=== PATIENT | female | born 2000 | race Caucasian/White ===

== ENCOUNTER 2019-03-01 10:52 | Emergency (ER) | payer SELFPAY ==
[2019-03-01 11:00] VITALS: BP 137/75
--- NOTE | 2019-03-01 11:19 | ER Document Report ---
ED Medical Screen (RME) - General Chief Complaint: Flank Pain Stated Complaint: FLANK PAIN Time Seen by Provider: 03/01/19 11:18 Mode of Arrival: Ambulatory Information source: Patient Notes: 18-year-old female presented to ED for bilateral flank pain worse on the right 10 days. She states the pain is worse on her right side. She does have frequency urgency with urination. She states she believes she has a UTI. Last menstrual period was about 3 weeks ago. She states she does smoke 1/2 pack a day does not drink alcohol and smokes pot occasionally works at [email or web address]. She is alert oriented respirations regular and unlabored speaking in full sentences walks with a even steady gait. States she is never had any medical history that she knows of. I have greeted and performed a rapid initial assessment of this patient. A comprehensive ED assessment and evaluation of the patient, analysis of test results and completion of medical decision making process will be conducted by an additional ED providers. Dictation of this chart was performed using voice recognition software; therefore, there may be some unintended grammatical errors. TRAVEL OUTSIDE OF THE [place] IN LAST 30 DAYS: No - Related Data Allergies/Adverse Reactions: No Known Allergies Allergy (Verified 03/01/19 10:53) Physical Exam - Vital signs Vitals: Temp Pulse Resp BP Pulse Ox 98.1 F 74 16 137/75 H 99 03/01/19 10:59 03/01/19 10:59 03/01/19 10:59 03/01/19 10:59 03/01/19 10:59 Course - Vital Signs Vital signs: Temp Pulse Resp BP Pulse Ox 98.1 F 74 16 137/75 H 99 03/01/19 10:59 03/01/19 10:59 03/01/19 10:59 03/01/19 10:59 03/01/19 10:59 - Laboratory Laboratory results interpreted by me: 03/01/19 11:23 Urine Blood SMALL H Doctor's Discharge - Discharge Clinical Impression: Urinary tract infection, Low back pain Condition: Stable Disposition: HOME, SELF-CARE Additional Instructions: Urinary Tract Infection: Your evaluation suggests that you have a urinary tract infection. This is due to germs growing in the bladder. This is a common problem. This infection usually responds quickly to antibiotics. Your antibiotic should be taken exactly as prescribed. Drink plenty of fluids -- three to four quarts a day. Occasionally, a bladder anesthetic will be prescribed to help stop the feeling of urgency until the antibiotic has a chance to clear the infection. This may cause your urine to be dark orange. Certain urine infections require a culture. If the doctor obtained a culture, the results will be back in two days. You should call to see if a change in treatment is needed. A repeat urinalysis after you finish treatment is often recommended. The physician will let you know if further testing is required. Call the doctor if you develop fever, chills, flank pain, inability to urinate, or blood in the urine. Your history, physical exam, and laboratory analysis of urine suggest that you have a urinary tract infection and muscular low back pain. Take medications as prescribed for the bladder infection. Drink plenty of fluids throughout the day in the evening. Take Tylenol and ibuprofen or Aleve for your back pain. Follow-up with a local medical doctor if not improving. RETURN TO THE EMERGENCY ROOM IF ANY NEW OR WORSENING SYMPTOMS. Prescriptions: Cephalexin Monohydrate [Keflex 500 mg Capsule] 500 mg PO TID #15 capsule Forms: Return to Work
[2019-03-01 11:50] LABS: APPEARANCE,URINE SLIGHTLY-CLOUDY; BILIRUBIN,URINE NEGATIVE (NEGATIVE); COLOR,URINE YELLOW; GLUCOSE, URINE NEGATIVE (NEGATIVE); KETONES,URINE NEGATIVE (NEGATIVE); LEUKOCYTE ESTERASE,URINE NEGATIVE (NEGATIVE); NITRITE,URINE NEGATIVE (NEGATIVE); PROTEIN,URINE NEGATIVE (NEGATIVE); URINE SPECIFIC GRAVITY 1.013; UROBILINOGEN,URINE NEGATIVE mg/dL (<2.0)
[2019-03-01] MEDS ORDERED: CEPHALEXIN 500 MG CAPSULE PO ONE (13:00)
--- NOTE | 2019-03-01 13:17 | ER Document Report ---
Entered by AUSTIN NEWTON SCRIBE 03/01/19 1300 Acting as scribe for:NANY COHEN MD ED General - General Chief Complaint: Flank Pain Stated Complaint: FLANK PAIN Time Seen by Provider: 03/01/19 11:18 Mode of Arrival: Ambulatory Information source: Patient Notes: Patient is a 18 year old female presenting to the emergency department complaining of bilateral flank pain and urinary frequency and urgency onset 1.5 weeks ago. Patient states she noticed she had to use the restroom frequently and only a small amount of urine would be released. She states she also noticed her urine was malodorous. She states she believes she has a UTI although she has never had one before. Patient denies any fevers. Patient does express concern for . TRAVEL OUTSIDE OF THE [place] IN LAST 30 DAYS: No - Related Data Allergies/Adverse Reactions: No Known Allergies Allergy (Verified 03/01/19 10:53) Past Medical History - General Information source: Patient - Social History Smoking Status: Current Every Day Smoker Frequency of alcohol use: None Drug Abuse: Marijuana Family History: Reviewed & Not Pertinent Patient has suicidal ideation: No Patient has homicidal ideation: No Review of Systems - Review of Systems Constitutional: No symptoms reported EENT: No symptoms reported Cardiovascular: No symptoms reported Respiratory: No symptoms reported Gastrointestinal: No symptoms reported Genitourinary: See HPI, Frequency, Flank pain, Urgency Female Genitourinary: No symptoms reported Musculoskeletal: No symptoms reported Skin: No symptoms reported Hematologic/Lymphatic: No symptoms reported Neurological/Psychological: No symptoms reported -: Yes All other systems reviewed and negative Physical Exam - Vital signs Vitals: Temp Pulse Resp BP Pulse Ox 98.1 F 74 16 137/75 H 99 03/01/19 10:59 03/01/19 10:59 03/01/19 10:59 03/01/19 10:59 03/01/19 10:59 - Notes Notes: GENERAL: Alert, interacts well. No acute distress. HEAD: Normocephalic, atraumatic. EYES: Pupils equal, round, and reactive to light. Extraocular movements intact. ENT: Oral mucosa moist, tongue midline. NECK: Full range of motion. Supple. Trachea midline. LUNGS: Clear to auscultation bilaterally, no wheezes, rales, or rhonchi. No respiratory distress. HEART: Regular rate and rhythm. No murmurs, gallops, or rubs. ABDOMEN: Soft, slightly tender to palpate the RLQ, no suprapubic tenderness to palpation. Non-distended. Bowel sounds present in all 4 quadrants. No guarding, rigidity, or rebound. EXTREMITIES: Moves all 4 extremities spontaneously. NEUROLOGICAL: Alert and oriented x3. Normal speech. PSYCH: Normal affect, normal mood. SKIN: Warm, dry, normal turgor. No rashes or lesions noted. BACK: Tender to palpate the bilateral lumbar muscles, less tender to the bilateral flank. No CVA tenderness to percussion. Course - Vital Signs Vital signs: Temp Pulse Resp BP Pulse Ox 98.1 F 74 16 137/75 H 99 03/01/19 10:59 03/01/19 10:59 03/01/19 10:59 03/01/19 10:59 03/01/19 10:59 - Laboratory Laboratory results interpreted by me: 03/01/19 11:23 Urine Blood SMALL H Discharge - Discharge Clinical Impression: Urinary tract infection Qualifiers: Urinary tract infection type: site unspecified Hematuria presence: with hematuria Qualified Code(s): N39.0 - Urinary tract infection, site not specified; R31.9 - Hematuria, unspecified Low back pain Qualifiers: Chronicity: acute Back pain laterality: bilateral Sciatica presence: without sciatica Qualified Code(s): M54.5 - Low back pain Condition: Stable Disposition: HOME, SELF-CARE Additional Instructions: Urinary Tract Infection: Your evaluation suggests that you have a urinary tract infection. This is due to germs growing in the bladder. This is a common problem. This infection usually responds quickly to antibiotics. Your antibiotic should be taken exactly as prescribed. Drink plenty of fluids -- three to four quarts a day. Occasionally, a bladder anesthetic will be prescribed to help stop the feeling of urgency until the antibiotic has a chance to clear the infection. This may cause your urine to be dark orange. Certain urine infections require a culture. If the doctor obtained a culture, the results will be back in two days. You should call to see if a change in treatment is needed. A repeat urinalysis after you finish treatment is often recommended. The physician will let you know if further testing is required. Call the doctor if you develop fever, chills, flank pain, inability to uri nicola, or blood in the urine. Your history, physical exam, and laboratory analysis of urine suggest that you have a urinary tract infection and muscular low back pain. Take medications as prescribed for the bladder infection. Drink plenty of fluids throughout the day in the evening. Take Tylenol and ibuprofen or Aleve for your back pain. Follow-up with a local medical doctor if not improving. RETURN TO THE EMERGENCY ROOM IF ANY NEW OR WORSENING SYMPTOMS. Prescriptions: Cephalexin Monohydrate [Keflex 500 mg Capsule] 500 mg PO TID #15 capsule Forms: Return to Work Scribe Attestation: 03/01/19 12:56 I personally performed the services described in the documentation, reviewed and edited the documentation which was dictated to the scribe in my presence, and it accurately records my words and actions. I personally performed the services described in the documentation, reviewed and edited the documentation which was dictated to the scribe in my presence, and it accurately records my words and actions.
== END 2019-03-01 13:12 | disposition home or self-care (01) ==
LOC: ER 10:52
DX: N39.0 Urinary tract infection, site not specified (principal); R31.9 Hematuria, unspecified; M54.5 Low back pain; R10.9 Unspecified abdominal pain; R35.0 Frequency of micturition; R39.15 Urgency of urination; F17.200 Nicotine dependence, unspecified, uncomplicated
CPT/HCPCS: 81001; 81025; 87086; 87088; 87186; 99284

== ENCOUNTER → 2019-06-04 | Outpatient (CLI) | payer SELFPAY ==
--- NOTE | 2019-06-04 15:52 | RADIOLOGY REPORT (SQ) ---
EXAM DESCRIPTION: U/S [id number] TRNABD 1GES W/ODOP COMPLETED DATE/TIME: 06/04/2019 3:37 pm REASON FOR STUDY: Z34.01 ENCNTR FOR SUPRVSN OF NORMAL FIRST PREG, FIRST TRIMESTER Z34.01 ENCNTR FOR SUPRVSN OF NORMAL FIRST PREG, FIRST TRIMES COMPARISON: None. TECHNIQUE: Transabdominal static and realtime grayscale images acquired of the pelvis. Additional se lected spectral and color Doppler images recorded. All images stored on PACs. bHCG: Not applicable. CLINICAL DATES: 8 week 5 day. LIMITATIONS: None. FINDINGS: FETUS: Single Living intrauterine . ULTRASOUND EGA: 8 week 5 day. ULTRASOUND KATIE: 01/09/2020. EFW: Not applicable less than 20 weeks. CRL: 2.07 cm. FHR: 171 beats per minute. SURVEY: No visualized anomalies. AMNIOTIC FLUID: Adequate amount. PLACENTA: Not yet developed due to early gestation. SUBCHORIONIC BLEED: No. SIZE OF BLEED: Not applicable. UTERUS: No masses. No anomalies. CERVICAL LENGTH: 4.3 cm. Closed. RIGHT ADNEXA: Ovary not identified due to poor acoustical window. No adnexal free fluid. No adnexal masses. LEFT ADNEXA: Normal ovary with normal vascular flow. No adnexal free fluid. No adnexal masses. FREE FLUID: None. OTHER: No other significant finding. IMPRESSION: LIVING INTRAUTERINE . EGA 8 WEEK 5 DAY. Trimester of : First trimester - 0 to 13 weeks. TECHNICAL DOCUMENTATION: JOB ID: [id number] [employer]- All Rights Reserved Reading location - IP/workstation name: [email or web address]
== END ==
LOC: RAD 14:52
PROVIDERS: ATTEND Midwife
DX: Z34.01 Encounter for supervision of normal first pregnancy, first trimester (principal)
CPT/HCPCS: 76801

== ENCOUNTER → 2019-11-28 | Outpatient (CLI) | payer MEDICAID ==
[2019-11-28 17:16] LABS: ABSOLUTE LYMPHOCYTES (AUTO) 2.5 10^3/uL (0.5-4.7); ABSOLUTE MONOCYTES (AUTO) 0.6 10^3/uL (0.1-1.4); ABSOLUTE NEUT (AUTO) 8.8 10^3/uL (1.7-8.2); BASOPHILS % (AUTO) 0.3 % (0-2); EOSINOPHILS % (AUTO) 0.4 % (0-6); HEMATOCRIT 33.1 % (36.0-47.0); HEMOGLOBIN 11.3 g/dL (12.0-15.5); LYMPHOCYTES % (AUTO) 21.2 % (13-45); MEAN CORPUSCULAR HEMOGLOBIN 28.9 pg (27.0-33.4); MEAN CORPUSCULAR HGB CONC 34.3 g/dL (32.0-36.0); MEAN CORPUSCULAR VOLUME 84 fl (80-97); MONOCYTES % (AUTO) 5.1 % (3-13); PLATELET COUNT 266 10^3/uL (150-450); RED BLOOD COUNT 3.92 10^6/uL (3.72-5.28); RED CELL DISTRIBUTION WIDTH 12.6 % (11.5-14.0); TOTAL CELLS COUNTED % (AUTO) 100 %
[2019-11-28 17:35] LABS: ALBUMIN 3.5 g/dL (3.5-5.0); ALKALINE PHOSPHATASE 170 U/L (38-126); ANION GAP 8 (5-19); ASPARTATE AMINO TRANSFERASE 19 U/L (14-36); BILIRUBIN,TOTAL 0.3 mg/dL (0.2-1.3); BLOOD UREA NITROGEN 11 mg/dL (7-20); CALCIUM 9.7 mg/dL (8.4-10.2); CARBON DIOXIDE 21 mmol/L (22-30); CHLORIDE 105 mmol/L (98-107); POTASSIUM 4.2 mmol/L (3.6-5.0); TOTAL PROTEIN 6.4 g/dL (6.3-8.2); URIC ACID 5.8 mg/dL (2.5-6.2)
[2019-11-28 17:39] LABS: GLUCOSE 69 mg/dL (75-110)
== END ==
LOC: OD 16:26
PROVIDERS: ATTEND Obstetrics & Gynecology Gynecology
DX: O13.9 Gestational [pregnancy-induced] hypertension without significant proteinuria, unspecified trimester (principal)
CPT/HCPCS: 36415; 80053; 83615; 84550; 85025

== ENCOUNTER 2019-12-19 17:13 | Outpatient (CLI) | payer MEDICAID ==
[2019-12-19 18:19] LABS: APPEARANCE,URINE SLIGHTLY-CLOUDY; BILIRUBIN,URINE NEGATIVE (NEGATIVE); COLOR,URINE YELLOW; GLUCOSE, URINE NEGATIVE (NEGATIVE); KETONES,URINE NEGATIVE (NEGATIVE); LEUKOCYTE ESTERASE,URINE NEGATIVE (NEGATIVE); NITRITE,URINE NEGATIVE (NEGATIVE); PROTEIN,URINE 30 mg/dL (NEGATIVE); URINE SPECIFIC GRAVITY 1.014; UROBILINOGEN,URINE NEGATIVE mg/dL (<2.0)
[2019-12-19 18:32] LABS: ABSOLUTE BASOPHILS # (AUTO) 0.1 10^3/uL (0.0-0.2); ABSOLUTE MONOCYTES (AUTO) 0.5 10^3/uL (0.1-1.4); BASOPHILS % (AUTO) 0.6 % (0-2); EOSINOPHILS % (AUTO) 0.5 % (0-6); HEMATOCRIT 33.8 % (36.0-47.0); HEMOGLOBIN 11.6 g/dL (12.0-15.5); LYMPHOCYTES % (AUTO) 21.1 % (13-45); MEAN CORPUSCULAR HEMOGLOBIN 29.2 pg (27.0-33.4); MEAN CORPUSCULAR HGB CONC 34.3 g/dL (32.0-36.0); MEAN CORPUSCULAR VOLUME 85 fl (80-97); MONOCYTES % (AUTO) 5.4 % (3-13); PLATELET COUNT 208 10^3/uL (150-450); RED BLOOD COUNT 3.97 10^6/uL (3.72-5.28); RED CELL DISTRIBUTION WIDTH 13.2 % (11.5-14.0); SEGMENTED NEUTROPHILS % (AUTO) 72.4 % (42-78); TOTAL CELLS COUNTED % (AUTO) 100 %; WHITE BLOOD COUNT 9.7 10^3/uL (4.0-10.5)
[2019-12-19 18:34] LABS: URINE AMPHETAMINES SCREEN NEGATIVE; URINE BARBITURATES SCREEN NEGATIVE; URINE BENZODIAZEPINES SCREEN NEGATIVE; URINE COCAINE SCREEN NEGATIVE; URINE MARIJUANA (THC) SCREEN NEGATIVE; URINE METHADONE SCREEN NEGATIVE; URINE PHENCYCLIDINE SCREEN NEGATIVE
--- NOTE | 2019-12-19 18:36 | Non Stress Test Report ---
Non Stress Test Datetime Report Generated by CPN: 12/19/2019 18:35 DEMOGRAPHIC EGA NST: 37.2 INDICATION Indication for Study (NST) Other: increased BP's in the office MONITORING Monitor Explained: Monitor Explained; Test Explained Time on Monitor: 12/19/2019 18:00 Time off Monitor: 12/19/2019 18:20 NST Duration: 20 NST INTERVENTIONS NST Interventions: PO Hydration Physician Notified NST: Coy MD BABY A: [id number] BABY A Movement : Present Contraction Frequency : 0 FHR Baseline : 120 Accelerations : 15X15 Decelerations : None Variability : Moderate 6-25bpm NST Review: Meets Criteria for Reactive NST NST Review and Verified By : Edda Chu RN NST Results: Reactive NST REPORT Report Trigger: Send Report
[2019-12-19 18:38] LABS: UR PRO/CREAT RATIO RESULT 0.6 mg/mg (0.0-0.2); URINE CREATININE 87.2 mg/dL (16-327); URINE PROTEIN 55.7 mg/dL (<12)
[2019-12-19 18:50] LABS: ALBUMIN 3.3 g/dL (3.5-5.0); ALKALINE PHOSPHATASE 182 U/L (38-126); ANION GAP 6 (5-19); ASPARTATE AMINO TRANSFERASE 19 U/L (14-36); BILIRUBIN,TOTAL 0.1 mg/dL (0.2-1.3); BLOOD UREA NITROGEN 17 mg/dL (7-20); CALCIUM 9.7 mg/dL (8.4-10.2); CARBON DIOXIDE 22 mmol/L (22-30); CHLORIDE 107 mmol/L (98-107); GLUCOSE 101 mg/dL (75-110); POTASSIUM 4.4 mmol/L (3.6-5.0); TOTAL PROTEIN 6.2 g/dL (6.3-8.2); URIC ACID 6.7 mg/dL (2.5-6.2)
== END 2019-12-19 19:21 | disposition home or self-care (01) ==
LOC: LC 17:13
PROVIDERS: ATTEND Obstetrics & Gynecology
PROC: 4A1HXCZ Monitoring of Products of Conception, Cardiac Rate, External Approach (ICD-10-PCS; principal; 2019-12-19)
DX: O14.93 Unspecified pre-eclampsia, third trimester (principal); Z3A.37 37 weeks gestation of pregnancy
CPT/HCPCS: 36415; 59025; 80053; 80307; 81001; 82570; 83615; 84156; 84550; 85025

== ENCOUNTER 2019-12-21 14:37 | Outpatient (CLI) | payer MEDICAID | END 2019-12-21 15:19 | disposition home or self-care (01) | LOC: LC 14:37 | PROVIDERS: ATTEND Obstetrics & Gynecology Gynecology | DX: O12.13 Gestational proteinuria, third trimester (principal); Z3A.37 37 weeks gestation of pregnancy | CPT/HCPCS: 59025 ==

== ENCOUNTER 2019-12-30 18:20 | Inpatient (IN) | payer MEDICAID ==
[2019-12-30] MEDS ORDERED: RINGERS SOLUTION,LACTATED 1,000 ML IV ONE (18:40)
[2019-12-30] MEDS ORDERED: ACETAMINOPHEN 325 MG TABLET PO PRN (18:40)
[2019-12-30] MEDS ORDERED: DINOPROSTONE 10 MG VAGINAL INSERT.SR PV ONE (18:40)
[2019-12-30] MEDS ORDERED: RINGERS SOLUTION,LACTATED 1,000 ML IV PRN (18:40)
[2019-12-30] MEDS ORDERED: RINGERS SOLUTION,LACTATED 300 ML IV ONE (18:40)
[2019-12-30] MEDS ORDERED: ZOLPIDEM TARTRATE 5 MG TABLET PO PRN (18:40)
[2019-12-30] MEDS ORDERED: MAG HYDROX/AL HYDROX/SIMETH SUSP 30 ML UDCUP PO PRN (18:40)
[2019-12-30] MEDS ORDERED: PENICILLIN G POTASSIUM 5,000,000 UNIT in DEXTROSE 5%-WATER 100 ML IV ONE (19:00)
[2019-12-30 19:16] LABS: ABSOLUTE BASOPHILS # (AUTO) 0.1 10^3/uL (0.0-0.2); ABSOLUTE EOSINOPHILS # (AUTO) 0.1 10^3/uL (0.0-0.6); ABSOLUTE LYMPHOCYTES (AUTO) 2.4 10^3/uL (0.5-4.7); ABSOLUTE MONOCYTES (AUTO) 0.5 10^3/uL (0.1-1.4); ABSOLUTE NEUT (AUTO) 7.1 10^3/uL (1.7-8.2); BASOPHILS % (AUTO) 0.7 % (0-2); EOSINOPHILS % (AUTO) 0.6 % (0-6); HEMATOCRIT 34.7 % (36.0-47.0); HEMOGLOBIN 11.9 g/dL (12.0-15.5); LYMPHOCYTES % (AUTO) 23.4 % (13-45); MEAN CORPUSCULAR HEMOGLOBIN 28.7 pg (27.0-33.4); MEAN CORPUSCULAR HGB CONC 34.2 g/dL (32.0-36.0); MEAN CORPUSCULAR VOLUME 84 fl (80-97); MONOCYTES % (AUTO) 5.4 % (3-13); PLATELET COUNT 237 10^3/uL (150-450); RED BLOOD COUNT 4.13 10^6/uL (3.72-5.28); RED CELL DISTRIBUTION WIDTH 13.2 % (11.5-14.0); SEGMENTED NEUTROPHILS % (AUTO) 69.9 % (42-78); TOTAL CELLS COUNTED % (AUTO) 100 %; WHITE BLOOD COUNT 10.2 10^3/uL (4.0-10.5)
[2019-12-30 19:19] LABS: APPEARANCE,URINE CLEAR; BILIRUBIN,URINE NEGATIVE (NEGATIVE); COLOR,URINE YELLOW; GLUCOSE, URINE NEGATIVE (NEGATIVE); KETONES,URINE NEGATIVE (NEGATIVE); LEUKOCYTE ESTERASE,URINE NEGATIVE (NEGATIVE); NITRITE,URINE NEGATIVE (NEGATIVE); PROTEIN,URINE 100 mg/dL (NEGATIVE); URINE SPECIFIC GRAVITY 1.018; UROBILINOGEN,URINE NEGATIVE mg/dL (<2.0)
[2019-12-30 19:31] LABS: ALBUMIN 3.3 g/dL (3.5-5.0); ALKALINE PHOSPHATASE 188 U/L (38-126); ANION GAP 8 (5-19); ASPARTATE AMINO TRANSFERASE 19 U/L (14-36); BILIRUBIN,TOTAL 0.2 mg/dL (0.2-1.3); BLOOD UREA NITROGEN 21 mg/dL (7-20); CALCIUM 9.6 mg/dL (8.4-10.2); CARBON DIOXIDE 19 mmol/L (22-30); CHLORIDE 105 mmol/L (98-107); GLUCOSE 96 mg/dL (75-110); POTASSIUM 4.6 mmol/L (3.6-5.0); TOTAL PROTEIN 6.1 g/dL (6.3-8.2); URIC ACID 7.5 mg/dL (2.5-6.2)
[2019-12-30 19:36] LABS: URINE AMPHETAMINES SCREEN NEGATIVE; URINE BARBITURATES SCREEN NEGATIVE; URINE BENZODIAZEPINES SCREEN NEGATIVE; URINE COCAINE SCREEN NEGATIVE; URINE MARIJUANA (THC) SCREEN NEGATIVE; URINE METHADONE SCREEN NEGATIVE; URINE PHENCYCLIDINE SCREEN NEGATIVE
[2019-12-30 19:42] LABS: UR PRO/CREAT RATIO RESULT 1.6 mg/mg (0.0-0.2); URINE CREATININE 118.8 mg/dL (16-327); URINE PROTEIN 187.6 mg/dL (<12)
[2019-12-30] MEDS ORDERED: DINOPROSTONE 10 MG VAGINAL INSERT.SR ONE (19:43)
[2019-12-30] MEDS: RINGERS SOLUTION,LACTATED 1,000 ML IV PRN (19:57)
[2019-12-30] MEDS ORDERED: ZOLPIDEM TARTRATE 5 MG TABLET ONE (22:10)
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
[2019-12-31] MEDS ORDERED: ZOLPIDEM TARTRATE 5 MG TABLET PO ONE ×2 (00:01)
[2019-12-31] MEDS ORDERED: ZOLPIDEM TARTRATE 5 MG TABLET ONE (00:09)
[2019-12-31] MEDS ORDERED: OXYTOCIN/NORMAL SALINE 20 UNIT/1,000 ML RTUINJ ONE (08:45)
[2019-12-31] MEDS ORDERED: MORPHINE SULFATE 10 MG/ML INJ ONE (09:11)
[2019-12-31] MEDS ORDERED: PROMETHAZINE HCL INJ 25 MG/1 ML VIAL ONE (09:11)
[2019-12-31] MEDS ORDERED: MISOPROSTOL 0.2 MG TABLET ONE (09:13)
[2019-12-31] MEDS ORDERED: LIDOCAINE 1% INJ-PF (10 MG/ML) 30 ML SDV ONE (09:13)
[2019-12-31] MEDS ORDERED: OXYTOCIN 10 UNIT/ML VIAL ONE (09:13)
[2019-12-31] MEDS ORDERED: PROMETHAZINE HCL INJ 25 MG/1 ML VIAL IV ONE (09:22)
[2019-12-31] MEDS ORDERED: MORPHINE SULFATE 10 MG/ML INJ IV ONE (09:22)
[2019-12-31] MEDS ORDERED: OXYTOCIN/NORMAL SALINE 20 UNIT/1,000 ML RTUINJ IV PRN ×2 (09:23→15:06)
[2019-12-31 09:58] LABS: HEMATOCRIT 33.8 % (36.0-47.0); HEMOGLOBIN 11.9 g/dL (12.0-15.5); MEAN CORPUSCULAR HEMOGLOBIN 29.1 pg (27.0-33.4); MEAN CORPUSCULAR HGB CONC 35.2 g/dL (32.0-36.0); MEAN CORPUSCULAR VOLUME 83 fl (80-97); PLATELET COUNT 219 10^3/uL (150-450); RED BLOOD COUNT 4.08 10^6/uL (3.72-5.28); RED CELL DISTRIBUTION WIDTH 13.4 % (11.5-14.0)
[2019-12-31] MEDS ORDERED: PENICILLIN G-K 5 MILLION UNIT VIAL ONE ×2 (10:03→13:08)
[2019-12-31 10:15] LABS: ALBUMIN 3.4 g/dL (3.5-5.0); ALKALINE PHOSPHATASE 221 U/L (38-126); ANION GAP 8 (5-19); ASPARTATE AMINO TRANSFERASE 24 U/L (14-36); BILIRUBIN,TOTAL 0.2 mg/dL (0.2-1.3); BLOOD UREA NITROGEN 20 mg/dL (7-20); CALCIUM 8.8 mg/dL (8.4-10.2); CARBON DIOXIDE 19 mmol/L (22-30); CHLORIDE 104 mmol/L (98-107); GLUCOSE 100 mg/dL (75-110); POTASSIUM 4.4 mmol/L (3.6-5.0); TOTAL PROTEIN 6.4 g/dL (6.3-8.2); URIC ACID 7.1 mg/dL (2.5-6.2)
[2019-12-31] MEDS ORDERED: EPHEDRINE SULFATE INJ 50 MG/1 ML AMPULE ONE (10:44)
[2019-12-31] MEDS ORDERED: FENTANYL/BUPIVACAINE/NS/PF 300 MCG/150 ML RTUINJ EPI ONE (10:44)
[2019-12-31] MEDS ORDERED: BUPIVACAINE HCL 0.25 % INJ/PF (2.5 MG/1 ML) 30 ML VIAL ONE (10:45)
[2019-12-31] MEDS: RINGERS SOLUTION,LACTATED 1,000 ML IV PRN (11:18)
[2019-12-31] MEDS: PENICILLIN G POTASSIUM 2,500,000 UNIT in DEXTROSE 5%-WATER 50 ML IV SCH ×2 (14:17→17:08)
[2019-12-31] MEDS ORDERED: PROMETHAZINE HCL INJ 25 MG/1 ML VIAL IV PRN (15:06)
[2019-12-31] MEDS ORDERED: NA PHOS,M-B/NA PHOS,DI-BA (ADULT) 133 ML ENEMA PR PRN (15:06)
[2019-12-31] MEDS ORDERED: ACETAMINOPHEN WITH CODEINE #3 TABLET PO PRN ×2 (15:06)
[2019-12-31] MEDS ORDERED: ACETAMINOPHEN 325 MG TABLET PO PRN (15:06)
[2019-12-31] MEDS ORDERED: PROMETHAZINE HCL 25 MG TABLET PO PRN (15:06)
[2019-12-31] MEDS ORDERED: MEASLES,MUMPS&RUBELLA VACC/PF 0.5 ML VIAL SUBCUT PRN (15:06)
[2019-12-31] MEDS ORDERED: DIPH/PERTUSS(ACELL)/TETANUS VAC/PF 0.5 ML SYR (>=10YO) IM PRN (15:06)
[2019-12-31] MEDS ORDERED: DIBUCAINE 1% OINTMENT 28 GM TP PRN (15:06)
[2019-12-31] MEDS ORDERED: MAGNESIUM HYDROXIDE SUSP 30 ML UDCUP PO PRN (15:06)
[2019-12-31] MEDS ORDERED: BENZOCAINE/MENTHOL AEROSOL SPRAY 56 ML TOP PRN (15:06)
[2019-12-31] MEDS ORDERED: DIPHENHYDRAMINE HCL 25 MG CAPSULE PO PRN (15:06)
[2019-12-31] MEDS ORDERED: PROMETHAZINE HCL 25 MG SUPP.RECT PR PRN (15:06)
[2019-12-31] MEDS ORDERED: ZOLPIDEM TARTRATE 5 MG TABLET PO PRN (15:06)
[2019-12-31] MEDS ORDERED: PSEUDOEPHEDRINE HCL 30 MG TABLET PO PRN (15:06)
[2019-12-31] MEDS ORDERED: ACETAMINOPHEN 650 MG SUPP.RECT PR PRN (15:06)
[2019-12-31] MEDS ORDERED: GLYCERIN/WITCH HAZEL LEAF 1 EACH MED..WIPE TP PRN (15:06)
[2019-12-31] MEDS ORDERED: BENZOCAINE/MENTHOL AEROSOL SPRAY 56 ML ONE (16:37)
--- NOTE | 2019-12-31 17:14 | Delivery Summary ---
Del Sum A-C Datetime Report Generated by CPN: 12/31/2019 17:14 DELIVERY PERSONNEL DELIVERY PERSONNEL: [id number] Delivery Doctor:: Iona Cheney MD Labor and Delivery Nurse:: Charo Vieyra RNactuarial internship Nurse:: Mi Norwood RN Pillowcase Folder/INDUSTRIAL CONTROLLER: Denisse Acevedo ENTERPRISE ANALYST Additional Personnel: : Carolyn Peck RNC MATERNAL INFORMATION Delivery Anesthesia: Epidural Medications After Delivery: Pitocin Bolus-Please Comment Meds After Delivery Comment: 20 Units/1000 ml NSS Estimated Blood Loss (ml): 150 Delivery QBL: 150 Maternal Complications: None LABOR SUMMARY EDC: 01/07/2020 00:00 No. Babies in Womb: 1 Attempted: No Labor Anesthesia: Epidural LABOR INFORMATION Reason for Induction: Pre-Eclampsia Onset of Labor: 12/31/2019 09:00 Complete Dilatation: 12/31/2019 13:23 Cervical Ripening Agents: Cervidil Oxytocin: Induction Group B Beta Strep: positive Antibiotics # of Doses: 2 Antibiotics Time of Last Dose: 1412 Name of Antibiotic Given: Penicillin Steroids Given: None Reason Steroids Not Administered: Not Applicable MEMBRANES Membranes Rupture Method: Spontaneous Rupture of Membranes: 12/31/2019 09:03 Length of Rupture (hr): 5.88 Amniotic Fluid Color: Clear Amniotic Fluid Amount: Moderate Amniotic Fluid Odor: None STAGES OF LABOR Stage 1 hr: 4 Stage 1 min: 23 Stage 2 hr: 1 Stage 2 min: 33 Stage 3 hr: 0 Stage 3 min: 2 Total Time in Labor hr: 5 Total Time in Labor min: 58 VAGINAL DELIVERY Episiotomy: None Laceration #1: None Laceration Extension #1: N/A Laceration Repair: Not Applicable Sponge Count Correct: N/A Sharps Count Correct: N/A CSECTION DELIVERY Primary Indication: N/A Secondary Indication: N/A CSection Incidence: N/A Labor: N/A Elective: N/A CSection Incision: N/A BABY A INFORMATION Delivery Date/Time: 12/31/2019 14:56 Method of Delivery: Vaginal Nurse Controlled Delivery: No Born in Route : No : N/A Forceps: N/A Vacuum Extraction: N/A Shoulder Dystocia : No PRESENTATION/POSITION BABY A Presentation: Cephalic Cephalic Presentation: Vertex Vertex Position: Right Occipital Anterior Breech Presentation: N/A PLACENTA INFORMATION BABY A Placenta Delivery Time : 12/31/2019 14:58 Placenta Method of Delivery: Spontaneous Placenta Status: Delivered SCORES BABY A Heart Rate 1 min: >100 bpm Resp Effort 1 min: Good Cry Reflex Irritability 1 min: Cough or Sneeze or Pulls Away Muscle Tone 1 min: Active Motion Color 1 min: Blue/Pale Resuscitation Effort 1 min: Tactile Stimulation SCORE 1 MIN: 8 Heart Rate 5 min: >100 bpm Resp Effort 5 min: Good Cry Reflex Irritability 5 min: Cough or Sneeze or Pulls Away Muscle Tone 5 min: Active Motion Color 5 min: Body Ensley, Extremities Blue Resuscitation Effort 5 min: N/A SCORE 5 MIN: 9 Resuscitation Effort 10 min: N/A INFANT INFORMATION BABY A Gestational Age at Delivery: 39.0 Gestational Status: Full Term- 39- 40.6 Weeks Infant Outcome : Liveborn Condition : Stable Infant Sex: Female IDENTIFICATION BABY A Infant Verification Date/Time: 12/31/2019 15:17 ID Band Number: [id number] Mother's Name Verified: Yes Infant RN Verifying : Luisa Vieyra, RN Additional Verifying Personnel: TClint Schmidtg, RN WEIGHT/LENGTH BABY A Birthweight (gm): 2751 Weight (lb): 6 Infant Weight (oz): 1 Length (in): 18.50 Infant Length (cm): 46.99 CORD INFORMATION BABY A No. Cord Vessels: 3 Nuchal Cord : N/A Cord Blood Taken: Yes-For Storage (Mom's Blood type +) Suction: None ASSESSMENT BABY A Infant Complications: None Physical Findings at Delivery: Caput Succedaneum; Molding of the Head Respirations: Appears Normal Skin to Skin: Yes Skin to Skin Time (min): 55 Arts Manager/ALS Called : No Infant Care By: Myrna Vieyra RN Transferred To: Remains with Mother BABY B INFORMATION : N/A SIGNATURES Signature: with User ID: [email or web address]
[2019-12-31] MEDS: DOCUSATE SODIUM 100 MG CAPSULE PO SCH (17:40)
[2019-12-31] MEDS: FERROUS SULFATE 325 MG TABLET PO SCH (17:40)
[2019-12-31] MEDS: IBUPROFEN 800 MG TABLET PO SCH (21:19)
[2019-12-31] MEDS: FAMOTIDINE 20 MG TABLET PO SCH (21:21)
[2020-01-01] MEDS: IBUPROFEN 800 MG TABLET PO SCH ×3 (05:13→22:08)
[2020-01-01 06:23] LABS: HEMATOCRIT 26.6 % (36.0-47.0); MEAN CORPUSCULAR HEMOGLOBIN 29.7 pg (27.0-33.4); MEAN CORPUSCULAR HGB CONC 35.2 g/dL (32.0-36.0); MEAN CORPUSCULAR VOLUME 84 fl (80-97); PLATELET COUNT 182 10^3/uL (150-450); RED BLOOD COUNT 3.15 10^6/uL (3.72-5.28); RED CELL DISTRIBUTION WIDTH 13.3 % (11.5-14.0); WHITE BLOOD COUNT 10.7 10^3/uL (4.0-10.5)
[2020-01-01 06:24] LABS: HEMOGLOBIN 9.3 g/dL (12.0-15.5)
--- NOTE | 2020-01-01 10:11 | PDOC PROGRESS REPORT ---
Subjective-OB Progress Note for:: 01/01/20 Subjective: reports bleeding slowing, pain controlled with current meds. denies needs Physical Exam (OB) Vital Signs: Temp Pulse Resp BP Pulse Ox 97.6 F 66 16 122/83 98 01/01/20 07:47 01/01/20 07:47 01/01/20 07:47 01/01/20 07:47 01/01/20 07:47 Intake & Output 12/31/19 01/01/20 01/02/20 06:59 06:59 06:59 Intake Total 1000 1513 Output Total 600 Balance 1000 913 Weight 71.1 kg - Lochia Lochia Amount: Scant < 10 ml Lochia Color: Rubra/Red - Abdomen Description: Soft Hernia Present: No Fundal Description: Firm, Midline Fundal Height: u/u - u/2 - Genitourinary Female External exam: Other - labial edema-painful. able to urinate without difficulty - Extremities Lower extremities: Tyler's sign - neg Calf: Normal, Nontender Objective-Diagnostic Laboratory: 01/01/20 06:02 12/31/19 09:42 12/31/19 01/01/20 09:42 06:02 WBC 10.7 H RBC 3.15 L Hgb 9.3 L D Hct 26.6 L MCV 84 MCH 29.7 MCHC 35.2 RDW 13.3 Plt Count 182 Sodium 131.2 L Potassium 4.4 Chloride 104 Carbon Dioxide 19 L Anion Gap 8 BUN 20 Creatinine 0.91 Est GFR ( Amer) > 60 Glucose 100 Uric Acid 7.1 H Calcium 8.8 Total Bilirubin 0.2 AST 24 Alkaline Phosphatase 221 H Total Protein 6.4 Albumin 3.4 L Assessment and Plan(PN) - Time Spent with Patient Time with patient: Less than 15 minutes - Disposition Anticipated Discharge: Home Within: within 24 hours
[2020-01-01] MEDS: DOCUSATE SODIUM 100 MG CAPSULE PO SCH ×2 (10:37→17:34)
[2020-01-01] MEDS: SENNOSIDES/DOCUSATE 8.6-50 MG 1 EACH TABLET PO SCH (10:37)
[2020-01-01] MEDS: FERROUS SULFATE 325 MG TABLET PO SCH ×2 (10:37→17:34)
[2020-01-01] MEDS: PRENATAL VITAMIN W DHA CAPSULE PO SCH (10:37)
[2020-01-01] MEDS: FAMOTIDINE 20 MG TABLET PO SCH ×2 (10:40→22:08)
[2020-01-02] MEDS: IBUPROFEN 800 MG TABLET PO SCH (06:04)
[2020-01-02] MEDS: FAMOTIDINE 20 MG TABLET PO SCH (10:31)
[2020-01-02] MEDS: FERROUS SULFATE 325 MG TABLET PO SCH (10:31)
[2020-01-02] MEDS: DOCUSATE SODIUM 100 MG CAPSULE PO SCH (10:31)
[2020-01-02] MEDS: PRENATAL VITAMIN W DHA CAPSULE PO SCH (10:31)
[2020-01-02] MEDS: SENNOSIDES/DOCUSATE 8.6-50 MG 1 EACH TABLET PO SCH (10:31)
[2020-01-02 12:04] VITALS: BP 141/92
--- NOTE | 2020-01-02 12:24 | PDOC DISCHARGE SUMMARY ---
Impression - Admit/DC Date/PCP Admission Date/Primary Care Provider: 12/30/19 18:20 KIMBERLEY ENCARNACION CNM Discharge Date: 01/02/20 - Discharge Diagnosis (1) Vaginal delivery Is this a current diagnosis for this admission?: Yes (2) Acute blood loss anemia Is this a current diagnosis for this admission?: Yes (3) Current every day smoker Is this a current diagnosis for this admission?: Yes (4) Encounter for induction of labor Is this a current diagnosis for this admission?: Yes (5) Gestational hypertension Is this a current diagnosis for this admission?: Yes - Assessment Summary: stable for discharge, verbalized understanding of pp warning s/s. Has bp machine at home, will continue to check and call the office if bp elevated for appt in 1 week otherwise regular pp appt - Additional Information Resuscitation Status: Full Code Discharge Diet: As Tolerated, Regular Discharge Activity: Activity As Tolerated, Balance Activity w/Rest, No Lifting Over 10 Pounds, Pelvic Rest, No tub bath, Walk Frequently Referrals: KIMBERLEY ENCARNACION CNM [Primary Care Provider] - Prescriptions: Ibuprofen [Motrin 800 mg Tablet] 800 mg PO Q8HP PRN #20 tablet PRN Reason: Abdominal Cramping Docusate Sodium [Colace 100 mg Capsule] 100 mg PO BID #60 capsule Ferrous Sulfate [Feosol 325 mg Tablet] 325 mg PO BID #60 tablet Home Medications: Prenat 115/Iron Fum/Folic/Dss [ 19 Tablet] 1 each PO DAILY 12/19/19 Docusate Sodium [Colace 100 mg Capsule] 100 mg PO BID #60 capsule 01/02/20 Ferrous Sulfate [Feosol 325 mg Tablet] 325 mg PO BID #60 tablet 01/02/20 Ibuprofen [Motrin 800 mg Tablet] 800 mg PO Q8HP PRN #20 tablet 01/02/20 Results Laboratory Results: WBC 10.7 10^3/uL (4.0-10.5) H 01/01/20 06:02 RBC 3.15 10^6/uL (3.72-5.28) L 01/01/20 06:02 Hgb 9.3 g/dL (12.0-15.5) L D 01/01/20 06:02 Hct 26.6 % (36.0-47.0) L 01/01/20 06:02 MCV 84 fl (80-97) 01/01/20 06:02 MCH 29.7 pg (27.0-33.4) 01/01/20 06:02 MCHC 35.2 g/dL (32.0-36.0) 01/01/20 06:02 RDW 13.3 % (11.5-14.0) 01/01/20 06:02 Plt Count 182 10^3/uL (150-450) 01/01/20 06:02 Lymph % (Auto) 23.4 % (13-45) 12/30/19 18:59 [place] % (Auto) 5.4 % (3-13) 12/30/19 18:59 Eos % (Auto) 0.6 % (0-6) 12/30/19 18:59 Baso % (Auto) 0.7 % (0-2) 12/30/19 18:59 Absolute Neuts (auto) 7.1 10^3/uL (1.7-8.2) 12/30/19 18:59 Absolute Lymphs (auto) 2.4 10^3/uL (0.5-4.7) 12/30/19 18:59 Absolute Monos (auto) 0.5 10^3/uL (0.1-1.4) 12/30/19 18:59 Absolute Eos (auto) 0.1 10^3/uL (0.0-0.6) 12/30/19 18:59 Absolute Basos (auto) 0.1 10^3/uL (0.0-0.2) 12/30/19 18:59 Seg Neutrophils % 69.9 % (42-78) 12/30/19 18:59 Sodium 131.2 mmol/L (137-145) L 12/31/19 09:42 Potassium 4.4 mmol/L (3.6-5.0) 12/31/19 09:42 Chloride 104 mmol/L (98-107) 12/31/19 09:42 Carbon Dioxide 19 mmol/L (22-30) L 12/31/19 09:42 Anion Gap 8 (5-19) 12/31/19 09:42 BUN 20 mg/dL (7-20) 12/31/19 09:42 Creatinine 0.91 mg/dL (0.52-1.25) 12/31/19 09:42 Est GFR ( Amer) > 60 (>60) 12/31/19 09:42 Est GFR (MDRD) Non-Af > 60 (>60) 12/31/19 09:42 Glucose 100 mg/dL (75-110) 12/31/19 09:42 Uric Acid 7.1 mg/dL (2.5-6.2) H 12/31/19 09:42 Calcium 8.8 mg/dL (8.4-10.2) 12/31/19 09:42 Total Bilirubin 0.2 mg/dL (0.2-1.3) 12/31/19 09:42 Direct Bilirubin 0.0 mg/dL (0.0-0.4) 12/31/19 09:42 Neonat Total Bilirubin Not Reportable 12/31/19 09:42 Neonat Direct Bilirubin Not Reportable 12/31/19 09:42 Neonat Indirect Bili Not Reportable 12/31/19 09:42 AST 24 U/L (14-36) 12/31/19 09:42 ALT 14 U/L (<35) 12/31/19 09:42 Alkaline Phosphatase 221 U/L (38-126) H 12/31/19 09:42 Lactate Dehydrogenase 247 U/L (120-246) H 12/31/19 09:42 Total Protein 6.4 g/dL (6.3-8.2) 12/31/19 09:42 Albumin 3.4 g/dL (3.5-5.0) L 12/31/19 09:42 Urine Color YELLOW 12/30/19 18:59 Urine Appearance CLEAR 12/30/19 18:59 Urine pH 6.0 (5.0-9.0) 12/30/19 18:59 Ur Specific [place] 1.018 12/30/19 18:59 Urine Protein 100 mg/dL (NEGATIVE) H 12/30/19 18:59 Urine Glucose (UA) NEGATIVE mg/dL (NEGATIVE) 12/30/19 18:59 Urine Ketones NEGATIVE mg/dL (NEGATIVE) 12/30/19 18:59 Urine Blood NEGATIVE (NEGATIVE) 12/30/19 18:59 Urine Nitrite NEGATIVE (NEGATIVE) 12/30/19 18:59 Urine Bilirubin NEGATIVE (NEGATIVE) 12/30/19 18:59 Urine Urobilinogen NEGATIVE mg/dL (<2.0) 12/30/19 18:59 Ur Leukocyte Esterase NEGATIVE (NEGATIVE) 12/30/19 18:59 Urine WBC (Auto) 1 /HPF 12/30/19 18:59 Urine RBC (Auto) 0 /HPF 12/30/19 18:59 U Hyaline Cast (Auto) 1 /LPF 12/30/19 18:59 Squamous Epi Cells Auto <1 /HPF 12/30/19 18:59 Urine Mucus (Auto) RARE /LPF 12/30/19 18:59 Urine Creatinine 118.8 mg/dL (16-327) 12/30/19 18:59 Protein/Creatinin Ratio 1.6 mg/mg (0.0-0.2) H 12/30/19 18:59 Urine Total Protein 187.6 mg/dL (<12) H 12/30/19 18:59 Urine Ascorbic Acid NEGATIVE (NEGATIVE) 12/30/19 18:59 Urine Opiates Screen NEGATIVE 12/30/19 18:59 Urine Methadone Screen NEGATIVE 12/30/19 18:59 Ur Barbiturates Screen NEGATIVE 12/30/19 18:59 Ur Phencyclidine Scrn NEGATIVE 12/30/19 18:59 Ur Amphetamines Screen NEGATIVE 12/30/19 18:59 U Benzodiazepines Scrn NEGATIVE 12/30/19 18:59 Urine Cocaine Screen NEGATIVE 12/30/19 18:59 U Marijuana (THC) Screen NEGATIVE 12/30/19 18:59 RPR NONREACTIVE (NONREACTIVE) 12/30/19 18:59 Blood Type A POSITIVE 12/30/19 18:59 Antibody Screen NEGATIVE 12/30/19 18:59
== END 2020-01-02 13:05 | disposition home or self-care (01) | DRG 806 ==
LOC: LR 18:20 → 2S 12-31 17:13
PROVIDERS: ADMIT Obstetrics & Gynecology; ATTEND Obstetrics & Gynecology
PROC: 10E0XZZ Delivery of Products of Conception, External Approach (ICD-10-PCS; principal; 2019-12-31)
PROC: 3E033VJ Introduction of Other Hormone into Peripheral Vein, Percutaneous Approach (ICD-10-PCS; 2019-12-31)
DX: O13.4 Gestational [pregnancy-induced] hypertension without significant proteinuria, complicating childbirth (principal); D62 Acute posthemorrhagic anemia; Z37.0 Single live birth; O99.343 Other mental disorders complicating pregnancy, third trimester; O99.824 Streptococcus B carrier state complicating childbirth; Z3A.39 39 weeks gestation of pregnancy; O99.333 Smoking (tobacco) complicating pregnancy, third trimester; F41.8 Other specified anxiety disorders; O99.02 Anemia complicating childbirth
CPT/HCPCS: 36415; 80053; 80307; 81001; 82570; 83615; 84156; 84550; 85025; 85027; 86592; 86850; 86900; 86901; J2270; J2540; J2550; J2590; J3010; J3490; J7060

== ENCOUNTER 2020-02-20 15:43 | Emergency (ER) | payer MEDICAID ==
--- NOTE | 2020-02-20 16:12 | ER Document Report ---
ED Medical Screen (RME) - General Chief Complaint: Anxiety Stated Complaint: ANXIOUS Time Seen by Provider: 02/20/20 16:02 Primary Care Provider: KIMBERLEY ENCARNACION CNM [Primary Care Provider] - Follow up as needed Mode of Arrival: Ambulatory Information source: Patient Notes: HPI; 19-year-old female past medical history significant for anxiety presents to the emergency room stating "I think I am having an anxiety attack" patient states her almost 2-month-old daughter is admitted upstairs for the past 2 to 3 days and she is feeling anxious having stay in the room and not being able to leave. Previous history of anxiety states she used to take Zoloft has been off it for 2 months because she did not like the way it made her feel. She denies any suicidal homicidal ideation. States she is a single mom. PE: Alert and oriented x3. Cooperative. Answers questions appropriately. Moderate distress noted, anxious. Lungs are clear to auscultation without ral es, rhonchi, or wheezes. Heart: Regular rate and rhythm, without murmurs, rubs, gallops. I have greeted and performed a rapid initial assessment of this patient. A comprehensive ED assessment and evaluation of the patient, analysis of test results and completion of the medical decision making process will be conducted by additional ED providers. I have specifically instructed the patient or f amily members with the patient to immediately return to any nursing staff should anything change in the patient's condition or with their chief complaint. TRAVEL OUTSIDE OF THE [place] IN LAST 30 DAYS: No - Related Data Allergies/Adverse Reactions: No Known Allergies Allergy (Verified 02/20/20 15:54) Past Medical History - Social History Chew tobacco use (# tins/day): No Frequency of alcohol use: None Drug Abuse: None Renal/ Medical History: Denies: Hx Peritoneal Dialysis Physical Exam - Vital signs Vitals: Temp Pulse Resp BP Pulse Ox 98.8 F 82 16 120/55 L 98 02/20/20 15:50 02/20/20 15:50 02/20/20 15:50 02/20/20 15:50 02/20/20 15:50 Course - Vital Signs Vital signs: Temp Pulse Resp BP Pulse Ox 98.8 F 82 16 120/55 L 98 02/20/20 15:55 02/20/20 15:50 02/20/20 15:50 02/20/20 15:50 02/20/20 15:50 Doctor's Discharge - Discharge Referrals: KIMBERLEY ENCARNACION CNM [Primary Care Provider] - Follow up as needed
[2020-02-20 17:02] LABS: ABSOLUTE EOSINOPHILS # (AUTO) 0.1 10^3/uL (0.0-0.6); ABSOLUTE MONOCYTES (AUTO) 0.4 10^3/uL (0.1-1.4); ABSOLUTE NEUT (AUTO) 3.5 10^3/uL (1.7-8.2); BASOPHILS % (AUTO) 0.5 % (0-2); HEMATOCRIT 38.4 % (36.0-47.0); HEMOGLOBIN 12.8 g/dL (12.0-15.5); MEAN CORPUSCULAR HEMOGLOBIN 27.7 pg (27.0-33.4); MEAN CORPUSCULAR HGB CONC 33.4 g/dL (32.0-36.0); MEAN CORPUSCULAR VOLUME 83 fl (80-97); MONOCYTES % (AUTO) 5.8 % (3-13); PLATELET COUNT 310 10^3/uL (150-450); RED BLOOD COUNT 4.63 10^6/uL (3.72-5.28); RED CELL DISTRIBUTION WIDTH 13.7 % (11.5-14.0); SEGMENTED NEUTROPHILS % (AUTO) 49.7 % (42-78); TOTAL CELLS COUNTED % (AUTO) 100 %; WHITE BLOOD COUNT 7.1 10^3/uL (4.0-10.5)
[2020-02-20 17:05] LABS: APPEARANCE,URINE CLEAR; BILIRUBIN,URINE NEGATIVE (NEGATIVE); COLOR,URINE YELLOW; GLUCOSE, URINE NEGATIVE (NEGATIVE); KETONES,URINE NEGATIVE (NEGATIVE); LEUKOCYTE ESTERASE,URINE TRACE (NEGATIVE); NITRITE,URINE NEGATIVE (NEGATIVE); PROTEIN,URINE NEGATIVE (NEGATIVE); URINE SPECIFIC GRAVITY 1.019; UROBILINOGEN,URINE NEGATIVE mg/dL (<2.0)
[2020-02-20 17:17] LABS: ALBUMIN 4.8 g/dL (3.5-5.0); ALKALINE PHOSPHATASE 56 U/L (38-126); ANION GAP 9 (5-19); ASPARTATE AMINO TRANSFERASE 23 U/L (14-36); BILIRUBIN,TOTAL 0.2 mg/dL (0.2-1.3); BLOOD UREA NITROGEN 20 mg/dL (7-20); CALCIUM 9.7 mg/dL (8.4-10.2); CARBON DIOXIDE 24 mmol/L (22-30); CHLORIDE 105 mmol/L (98-107); GLUCOSE 100 mg/dL (75-110); POTASSIUM 4.2 mmol/L (3.6-5.0); TOTAL PROTEIN 7.7 g/dL (6.3-8.2)
[2020-02-20 17:21] LABS: URINE AMPHETAMINES SCREEN NEGATIVE; URINE BARBITURATES SCREEN NEGATIVE; URINE BENZODIAZEPINES SCREEN NEGATIVE; URINE COCAINE SCREEN NEGATIVE; URINE MARIJUANA (THC) SCREEN UNCONFIRMED POSITIVE; URINE METHADONE SCREEN NEGATIVE; URINE PHENCYCLIDINE SCREEN NEGATIVE
[2020-02-20 18:37] VITALS: BP 127/59
[2020-02-20] MEDS ORDERED: OLANZAPINE 2.5 MG TABLET PO ONE (18:39)
--- NOTE | 2020-02-20 18:40 | ER Document Report ---
ED Psych Disorder / Suicide - General Chief Complaint: Anxiety Stated Complaint: ANXIOUS Time Seen by Provider: 02/20/20 16:02 Primary Care Provider: [facility] [Provider Group] - Follow up as needed [facility] [Provider Group] - Follow up as needed KIMBERLEY ENCARNACION CNM [CERTIFIED NURSE [employer]INEER] - Follow up as needed Mode of Arrival: Ambulatory Information source: Patient Notes: Patient states that her child was admitted to the hospital about 2 days ago and because of that she has had to stay upstairs in the room with the child and can not leave. Patient is currently a single mother. Patient states that she does have a history of anxiety and ADD. Patient states that she has increased anxiety due to having to stay in the hospital and sometimes she feels compelled to take the child and walk out of the hospital as she feels anxious and needs to just leave. Patient states that she knows she cannot just take the child to the hospital as they are sick. Patient previously had been on Zoloft but took herself off as she thought she felt like a zombie on the medication. Patient denies any suicidal or homicidal ideations. TRAVEL OUTSIDE OF THE [place] IN LAST 30 DAYS: No - HPI Patient complains to provider of: No: Homicidal ideation, Suicidal ideation Onset: Other - 3 days Suicide Risk Factors: No spouse Situational problems related to: Other - Child in the hospital Associated symptoms: Anxious Similar symptoms previously: Yes Recently seen / treated by doctor: No - Related Data Allergies/Adverse Reactions: No Known Allergies Allergy (Verified 02/20/20 15:54) Past Medical History - General Information source: Patient - Social History Smoking Status: Never Smoker Chew tobacco use (# tins/day): No Frequency of alcohol use: None Drug Abuse: None Occupation: None Family History: Reviewed & Not Pertinent Patient has homicidal ideation: No Renal/ Medical History: Denies: Hx Peritoneal Dialysis Psychiatric Medical History: Reports: Hx Anxiety, Hx Attention Deficit Hyperactivity Disorder Surgical Hx: Negative Review of Systems - Review of Systems Constitutional: No symptoms reported EENT: No symptoms reported Cardiovascular: No symptoms reported. denies: Chest pain Respiratory: No symptoms reported Gastrointestinal: No symptoms reported Genitourinary: No symptoms reported Female Genitourinary: No symptoms reported Musculoskeletal: No symptoms reported Skin: No symptoms reported Hematologic/Lymphatic: No symptoms reported Neurological/Psychological: Anxiety. denies: Depression, Homicidal ideation, Suicidal ideation Physical Exam - Vital signs Vitals: Temp Pulse Resp BP Pulse Ox 98.8 F 82 16 120/55 L 98 02/20/20 15:50 02/20/20 15:50 02/20/20 15:50 02/20/20 15:50 02/20/20 15:50 - General General appearance: Appears well, Alert, Anxious In distress: None - HEENT Head: Normocephalic, Atraumatic Eyes: Normal Conjunctiva: Normal Nasal: Normal Mouth/Lips: Normal Mucous membranes: Normal Pharynx: Normal. No: Tonsillar hypertrophy Neck: Normal, Supple. No: Lymphadenopathy, Thyroid nodule - Respiratory Respiratory status: No respiratory distress Chest status: Nontender Breath sounds: Normal. No: Rales, Rhonchi, Stridor, Wheezing Chest palpation: Normal - Cardiovascular Rhythm: Regular Heart sounds: S1 appreciated, S2 appreciated Murmur: No - Abdominal Inspection: Normal Tenderness: Nontender - Back Back: Normal, Nontender. No: CVA tenderness - Extremities General upper extremity: Normal inspection, Normal strength General lower extremity: Normal inspection, Normal strength - Neurological Neuro grossly intact: Yes Cognition: Normal Nati Coma Scale Eye Opening: Spontaneous [place] Coma Scale Verbal: Oriented [place] Coma Scale Motor: Obeys Commands [place] Coma Scale Total: 15 - Psychological Associated symptoms: Anxious - Skin Skin Temperature: Warm Skin Moisture: Dry Skin Color: Normal Course - Re-evaluation Re-evalutation: 02/20/20 18:38 Mental health team evaluated patient and does not feel that she meets IVC criteria. Patient denies any suicidal homicidal ideation. Mental health team does recommend giving patient prescription for Zyprexa 2.5 mg twice a day. Patient is agreeable with this discharge plan of care at this time. Patient encouraged to follow-up with her primary doctor for refill of her medication and for follow-up regarding today's visit. - Vital Signs Vital signs: Temp Pulse Resp BP Pulse Ox 98.7 F 77 18 127/59 H 98 02/20/20 18:36 02/20/20 18:36 02/20/20 18:36 02/20/20 18:36 02/20/20 18:36 - Laboratory Result Diagrams: 02/20/20 16:41 02/20/20 16:41 Laboratory results interpreted by me: 02/20/20 16:50 Ur Leukocyte Esterase TRACE H Urine Ascorbic Acid 40 H Discharge - Discharge Clinical Impression: Anxiety Condition: Stable Disposition: HOME, SELF-CARE Instructions: Anxiety ([facility]) Additional Instructions: Return immediately for any new or worsening symptoms Followup with your primary care provider, call tomorrow to make a followup appointment Follow-up with a mental health provider for a recheck Prescriptions: Olanzapine [Zyprexa 2.5 Mg Tablet] 2.5 mg PO BID #30 tablet Referrals: KIMBERLEY ENCARNACION CNM [CERTIFIED NURSE [employer] ENGINEER] - Follow up as needed [facility] [Provider Group] - Follow up as needed [facility] [Provider Group] - Follow up as needed
== END 2020-02-20 18:57 | disposition home or self-care (01) ==
LOC: ER 15:43
DX: F41.9 Anxiety disorder, unspecified (principal)
CPT/HCPCS: 99283; 36415; 85025; 81025; 80053; 81001; 80307; J3490

== ENCOUNTER 2020-06-30 11:55 | Emergency (ER) | payer MEDICAID, OTHER ==
--- NOTE | 2020-06-30 12:31 | ER Document Report ---
ED Medical Screen (RME) - General Chief Complaint: Low Back Pain Stated Complaint: LOW BACK PAIN,FREQUENT URINATION Time Seen by Provider: 06/30/20 12:24 Mode of Arrival: Ambulatory Information source: Patient Notes: HPI; 20-year-old female presents to the emergency room complaining of back and bilateral flank pain for the past several weeks. States she woke up today with a subjective fever. No nausea, no vomiting, states she has pain after urination but no pain with urination. States she had some leftover antibiotics at home which she took yesterday. States she has a history of chronic UTIs and does not take her medications as prescribed. Denies any chance of secondary to Nexplanon in her arm. Did not take any medications for her symptoms other than the left of her antibiotics. PE: Alert and oriented x3. Mild distress noted. Lungs: Clear to auscultation without rales, rhonchi, wheezes. Mild bilateral flank pain on palpation. Heart: Regular rate rhythm without murmurs, rubs, gallops. I have greeted and performed a rapid initial assessment of this patient. A comprehensive ED assessment and evaluation of the patient, analysis of test results and completion of the medical decision making process will be conducted by additional ED providers. I have specifically instructed the patient or family members with the patient to immediately return to any nursing staff should anything change in the patient's condition or with their chief complaint. TRAVEL OUTSIDE OF THE [place] IN LAST 30 DAYS: No - Related Data Allergies/Adverse Reactions: No Known Allergies Allergy (Verified 06/30/20 12:23) Past Medical History - Social History Chew tobacco use (# tins/day): No Frequency of alcohol use: Social Drug Abuse: None Renal/ Medical History: Denies: Hx Peritoneal Dialysis Psychiatric Medical History: Reports: Hx Anxiety, Hx Attention Deficit Hyperactivity Disorder Physical Exam - Vital signs Vitals: Temp Pulse Resp BP Pulse Ox 98.2 F 92 20 124/72 98 06/30/20 12:31 06/30/20 12:31 06/30/20 12:31 06/30/20 12:31 06/30/20 12:31 Course - Vital Signs Vital signs: Temp Pulse Resp BP Pulse Ox 98.2 F 92 20 124/72 98 06/30/20 12:31 06/30/20 12:31 06/30/20 12:31 06/30/20 12:31 06/30/20 12:31
[2020-06-30 13:07] LABS: APPEARANCE,URINE CLEAR; BILIRUBIN,URINE NEGATIVE (NEGATIVE); COLOR,URINE YELLOW; GLUCOSE, URINE NEGATIVE (NEGATIVE); KETONES,URINE NEGATIVE (NEGATIVE); LEUKOCYTE ESTERASE,URINE TRACE (NEGATIVE); NITRITE,URINE NEGATIVE (NEGATIVE); PROTEIN,URINE NEGATIVE (NEGATIVE); URINE SPECIFIC GRAVITY 1.017; UROBILINOGEN,URINE NEGATIVE mg/dL (<2.0)
[2020-06-30 13:19] LABS: ABSOLUTE BASOPHILS # (AUTO) 0.1 10^3/uL (0.0-0.2); ABSOLUTE EOSINOPHILS # (AUTO) 0.3 10^3/uL (0.0-0.6); ABSOLUTE LYMPHOCYTES (AUTO) 2.6 10^3/uL (0.5-4.7); ABSOLUTE MONOCYTES (AUTO) 0.6 10^3/uL (0.1-1.4); ABSOLUTE NEUT (AUTO) 5.3 10^3/uL (1.7-8.2); BASOPHILS % (AUTO) 0.6 % (0-2); EOSINOPHILS % (AUTO) 3.2 % (0-6); HEMATOCRIT 39.8 % (36.0-47.0); HEMOGLOBIN 13.1 g/dL (12.0-15.5); LYMPHOCYTES % (AUTO) 29.2 % (13-45); MEAN CORPUSCULAR HGB CONC 32.9 g/dL (32.0-36.0); MEAN CORPUSCULAR VOLUME 76 fl (80-97); MONOCYTES % (AUTO) 6.9 % (3-13); PLATELET COUNT 344 10^3/uL (150-450); RED BLOOD COUNT 5.25 10^6/uL (3.72-5.28); RED CELL DISTRIBUTION WIDTH 18.3 % (11.5-14.0); SEGMENTED NEUTROPHILS % (AUTO) 60.1 % (42-78); TOTAL CELLS COUNTED % (AUTO) 100 %; WHITE BLOOD COUNT 8.9 10^3/uL (4.0-10.5)
[2020-06-30 13:45] LABS: ALBUMIN 4.5 g/dL (3.5-5.0); ALKALINE PHOSPHATASE 73 U/L (38-126); ANION GAP 10 (5-19); ASPARTATE AMINO TRANSFERASE 21 U/L (14-36); BILIRUBIN,DIRECT 0.2 mg/dL (0.0-0.4); BILIRUBIN,TOTAL 0.4 mg/dL (0.2-1.3); BLOOD UREA NITROGEN 20 mg/dL (7-20); CALCIUM 10.5 mg/dL (8.4-10.2); CARBON DIOXIDE 25 mmol/L (22-30); CHLORIDE 102 mmol/L (98-107); GLUCOSE 87 mg/dL (75-110); POTASSIUM 4.7 mmol/L (3.6-5.0); TOTAL PROTEIN 7.2 g/dL (6.3-8.2)
--- NOTE | 2020-06-30 14:07 | ER Document Report ---
ED General - General Chief Complaint: Flank Pain Stated Complaint: LOW BACK PAIN,FREQUENT URINATION Time Seen by Provider: 06/30/20 12:24 Mode of Arrival: Ambulatory TRAVEL OUTSIDE OF THE [place] IN LAST 30 DAYS: No - HPI Notes: Chief complaint: UTI symptoms History of present illness: Generally healthy 20-year-old female 1 para 1 with no prior surgery, no allergies and no chronic medications presents with intermittent lower UTI symptoms for about 3 months. She saw previously was given a prescription for an antibiotic but took this only for 1 day. She denies fever, chills, nausea, vomiting, back pain or vaginal discharge. - Related Data Allergies/Adverse Reactions: No Known Allergies Allergy (Verified 06/30/20 12:23) Past Medical History - General Information source: Patient - Social History Smoking Status: Current Every Day Smoker Chew tobacco use (# tins/day): No Frequency of alcohol use: Social Drug Abuse: None Family History: Reviewed & Not Pertinent Patient has homicidal ideation: No - Medical History Medical History: Negative Renal/ Medical History: Denies: Hx Peritoneal Dialysis Psychiatric Medical History: Reports: Hx Anxiety, Hx Attention Deficit H yperactivity Disorder Surgical Hx: Negative Review of Systems - Review of Systems Notes: Constitutional: Negative for fever. HENT: Negative for sore throat. Eyes: Negative for visual changes. Cardiovascular: Negative for chest pain. Respiratory: "Smoker's cough". Negative for shortness of breath. Gastrointestinal: Negative for abdominal pain, vomiting or diarrhea. Genitourinary: As per HPI. Musculoskeletal: Negative for back pain. Skin: Negative for rash. Neurological: Negative for headaches, weakness or numbness. 10 point ROS negative except as marked above and in HPI. Physical Exam - Vital signs Vitals: Temp Pulse Resp BP Pulse Ox 98.2 F 92 20 124/72 98 06/30/20 12:31 06/30/20 12:31 06/30/20 12:31 06/30/20 12:31 06/30/20 12:31 - Notes Notes: GENERAL: Well-developed well-nourished female approximately stated age appearing in no acute distress. SKIN: Good turgor no rashes. HEAD: Normocephalic atraumatic. EYES: PERRLA. EOMI. Conjunctivae and sclerae clear. EARS: CANALS AND TMS CLEAR. NOSE: CLEAR. MOUTH: Moist mucosa. Good dentition. No stridor or edema. No drooling. NECK: Supple. No masses or thyromegaly. No adenopathy. Carotids 2+ without bruits. No JVD. BACK: Symmetrical without tenderness. CHEST: Respirations unlabored. Breath sounds clear and symmetrical. HEART: Regular rhythm. No murmur gallop or rub. ABDOMEN: Soft nontender without masses, organomegaly or rebound. Bowel sounds normally active. No bruits. GENITALIA: Deferred. EXTREMITIES: No edema. No calf tenderness. Cap refill less than 1.5 seconds. Dorsalis pedis and posterior tibial pulses 3+ and symmetrical. NEUROLOGICAL: GCS 15. Alert and oriented x3. Normal gait. Fluent speech. Cranial nerves II through XII intact. Sensorimotor and cerebellar normal. Normal tone. PSYCHIATRIC: Appropriate affect. Course - Re-evaluation Re-evalutation: 06/30/20 14:04 Urinalysis consistent with UTI she appears stable for outpatient treatment with oral antibiotic. Findings, clinical impression and plan of treatment have been discussed with patient/family. Understanding of current findings and recommendations has been acknowledged by them and there is agreement regarding disposition and follow-up. - Vital Signs Vital signs: Temp Pulse Resp BP Pulse Ox 98.2 F 92 20 124/72 98 06/30/20 12:31 06/30/20 12:31 06/30/20 12:31 06/30/20 12:31 06/30/20 12:31 - Laboratory Result Diagrams: 06/30/20 12:41 06/30/20 12:41 Laboratory results interpreted by me: 06/30/20 06/30/20 06/30/20 12:41 12:41 12:41 MCV 76 L MCH 25.0 L RDW 18.3 H Calcium 10.5 H Urine Blood SMALL H Ur Leukocyte Esterase TRACE H Discharge - Discharge Clinical Impression: Cystitis Condition: Stable Disposition: HOME, SELF-CARE Additional Instructions: Urinary Tract Infection Your evaluation indicates that you have a urinary tract infection. This is due to germs growing in the bladder. This is a common problem. This infection usually responds quickly to antibiotics. Your antibiotic should be taken exactly as prescribed. Drink plenty of fluids -- three to four quarts a day. Occasionally, a bladder anesthetic will be prescribed to help stop the feeling of urgency until the antibiotic has a chance to clear the infection. This may cause your urine to be dark orange. Certain urine infections require a culture. If the doctor obtained a culture, the results will be back in two days. You should call to see if a change in treatment is needed. A repeat urinalysis after you finish treatment is often recommended. The physician will let you know if further testing is required. Call the doctor if you develop fever, chills, flank pain, inability to urinate, or blood in the urine. Return here as needed for new or worsening symptoms: Pain that is worsening or unimproved Uncontrolled vomiting High fever or shaking chills Overall worsening Prescriptions: Cephalexin Monohydrate [Keflex 500 mg Capsule] 500 mg PO Q6H 5 Days capsule Forms: Smoking Cessation Education Referrals: [facility] [Provider Group] - Follow up as needed
[2020-06-30 15:36] VITALS: BP 117/71
== END 2020-06-30 15:36 | disposition home or self-care (01) ==
LOC: ER 11:55
DX: N30.90 Cystitis, unspecified without hematuria (principal); F17.200 Nicotine dependence, unspecified, uncomplicated
CPT/HCPCS: 36415; 80053; 81001; 84703; 85025; 99283

== ENCOUNTER 2020-08-23 19:42 | Emergency (ER) | payer MEDICAID ==
--- NOTE | 2020-08-23 20:04 | ER Document Report ---
ED Medical Screen (RME) - General Stated Complaint: COUGH/SORE THROAT/DIFFICULTY IN BREATHING Time Seen by Provider: 08/23/20 19:48 Mode of Arrival: Ambulatory Information source: Patient Notes: HPI; 20-year-old female with no previous medical problems presents to the emergency room complaining of general fatigue, cough, chest pressure and a sore throat that started earlier today. She denies any fevers. States she took some [place] cold and flu with an [id number] cough medicine without relief. No nausea, no vomiting, no diarrhea. No COVID-19 exposure. Describes the chest pain as midsternal pressure. PE: Alert and oriented x3. Lungs: Clear to auscultation without rales, rhonchi, wheezes. Heart: Regular rate rhythm without murmurs, rubs, gallops. Positive for posterior pharyngeal erythema without exudate. No anterior or posterior cervical lymphadenopathy. I have greeted and performed a rapid initial assessment of this patient. A comprehensive ED assessment and evaluation of the patient, analysis of test results and completion of the medical decision making process will be conducted by additional ED providers. I have specifically instructed the patient or family members with the patient to immediately return to any nursing staff should anything change in the patient's condition or with their chief complaint. TRAVEL OUTSIDE OF THE [place] IN LAST 30 DAYS: No - Related Data Allergies/Adverse Reactions: No Known Allergies Allergy (Verified 06/30/20 12:23) Past Medical History Renal/ Medical History: Denies: Hx Peritoneal Dialysis Psychiatric Medical History: Reports: Hx Anxiety, Hx Attention Deficit Hyperactivity Disorder Physical Exam - Vital signs Vitals: Temp Pulse Resp BP Pulse Ox 98.5 F 98 16 123/60 96 08/23/20 19:48 08/23/20 19:48 08/23/20 19:48 08/23/20 19:48 08/23/20 19:48 Course - Vital Signs Vital signs: Temp Pulse Resp BP Pulse Ox 98.5 F 98 16 123/60 96 08/23/20 19:48 08/23/20 19:48 08/23/20 19:48 08/23/20 19:48 08/23/20 19:48
[2020-08-23 20:53] LABS: ABSOLUTE EOSINOPHILS # (AUTO) 0.3 10^3/uL (0.0-0.6); ABSOLUTE LYMPHOCYTES (AUTO) 2.1 10^3/uL (0.5-4.7); ABSOLUTE MONOCYTES (AUTO) 0.5 10^3/uL (0.1-1.4); ABSOLUTE NEUT (AUTO) 5.5 10^3/uL (1.7-8.2); BASOPHILS % (AUTO) 0.3 % (0-2); EOSINOPHILS % (AUTO) 3.1 % (0-6); HEMATOCRIT 36.1 % (36.0-47.0); HEMOGLOBIN 11.9 g/dL (12.0-15.5); LYMPHOCYTES % (AUTO) 25.1 % (13-45); MEAN CORPUSCULAR VOLUME 79 fl (80-97); MONOCYTES % (AUTO) 5.5 % (3-13); PLATELET COUNT 277 10^3/uL (150-450); RED BLOOD COUNT 4.58 10^6/uL (3.72-5.28); RED CELL DISTRIBUTION WIDTH 16.2 % (11.5-14.0); TOTAL CELLS COUNTED % (AUTO) 100 %; WHITE BLOOD COUNT 8.3 10^3/uL (4.0-10.5)
--- NOTE | 2020-08-23 20:56 | RADIOLOGY REPORT (SQ) ---
EXAM DESCRIPTION: CHEST SINGLE VIEW CLINICAL HISTORY: 20 years Female, chest pain COMPARISON: None. FINDINGS: Lungs: Lungs are clear. No pneumonia or edema. No pneumothorax or pleural effusion. Mediastinum: Cardiac and mediastinal silhouette are normal. Bones: Osseous structures are normal. IMPRESSION: Unremarkable single view of the chest. No acute process.
[2020-08-23 21:16] LABS: ALBUMIN 3.4 g/dL (3.5-5.0); ALKALINE PHOSPHATASE 58 U/L (38-126); ANION GAP 5 (5-19); ASPARTATE AMINO TRANSFERASE 18 U/L (14-36); BILIRUBIN,DIRECT 0.1 mg/dL (0.0-0.4); BILIRUBIN,TOTAL 0.1 mg/dL (0.2-1.3); BLOOD UREA NITROGEN 15 mg/dL (7-20); CALCIUM 9.1 mg/dL (8.4-10.2); CARBON DIOXIDE 24 mmol/L (22-30); CHLORIDE 108 mmol/L (98-107); GLUCOSE 114 mg/dL (75-110); TOTAL PROTEIN 5.7 g/dL (6.3-8.2)
--- NOTE | 2020-08-23 22:02 | ER Document Report ---
ED General - General Chief Complaint: Flu Symptoms Stated Complaint: COUGH/SORE THROAT/DIFFICULTY IN BREATHING Time Seen by Provider: 08/23/20 19:48 Primary Care Provider: [facility] [Provider Group] - Follow up in 1 week Mode of Arrival: Ambulatory TRAVEL OUTSIDE OF THE [place] IN LAST 30 DAYS: No - HPI Notes: 20-year-old female to the emergency department with complaints of cough, fatigue, body aches, sore throat and loss of taste that started today. She states that she has felt febrile but has not measured a temperature. She admits to chills as well. She states that she feels a little bit short of breath at times. She denies any nausea vomiting or diarrhea. She denies any abdominal pain or chest pain. She states that she has not been in contact with anybody has tested positive for COVID-19. However, she has been out shopping in stores for black Tuesday and groceries without a mask. - Related Data Allergies/Adverse Reactions: No Known Allergies Allergy (Verified 06/30/20 12:23) Past Medical History - General Information source: Patient - Social History Smoking Status: Current Every Day Smoker Chew tobacco use (# tins/day): No Frequency of alcohol use: None Drug Abuse: None Family History: Reviewed & Not Pertinent Patient has homicidal ideation: No Renal/ Medical History: Denies: Hx Peritoneal Dialysis Psychiatric Medical History: Reports: Hx Anxiety, Hx Attention Deficit Hyperactivity Disorder Review of Systems - Review of Systems Constitutional: Chills, Fever, Malaise EENT: Throat pain Cardiovascular: denies: Chest pain, Palpitations, Heart racing, Dizziness, Lightheaded Respiratory: Cough, Short of breath, Wheezing Gastrointestinal: denies: Abdominal pain, Diarrhea, Nausea, Vomiting Genitourinary: No symptoms reported Female Genitourinary: No symptoms reported Musculoskeletal: No symptoms reported Skin: No symptoms reported Neurological/Psychological: No symptoms reported -: Yes All other systems reviewed and negative Physical Exam - Vital signs Vitals: Temp 98.5 F 08/23/20 19:43 Temp Pulse Resp BP Pulse Ox 99.7 F 101 H 20 124/64 99 08/24/20 00:01 08/24/20 00:01 08/24/20 00:01 08/24/20 00:01 08/24/20 00:01 Intake & Output 08/23/20 08/24/20 08/25/20 06:59 06:59 06:59 Weight 71.668 kg Weight/Height Weight 71.668 kg Height 4 ft 11 in Interpretation: Normal - Notes Notes: PHYSICAL EXAMINATION: GENERAL: Well-appearing, well-nourished and in no acute distress. HEAD: Atraumatic, normocephalic. EYES: Pupils equal round and reactive to light, extraocular movements intact, sclera anicteric, conjunctiva are normal. ENT: nares patent, oropharynx clear without exudates. Moist mucous membranes. TMs clear bilaterally. There is no voice change. There is no Bethel's angina. Airway is grossly patent. NECK: Normal range of motion, supple without lymphadenopathy LUNGS: Breath sounds are mildly decreased. There is no accessory muscle use. There is noes respiratory distress. She has a wet hacking cough. No wheezes rales or rhonchi. HEART: Regular rate and rhythm without murmurs ABDOMEN: Soft, nontender, normoactive bowel sounds. No guarding, no rebound. No masses appreciated. EXTREMITIES: Normal range of motion, no pitting or edema. No cyanosis. NEUROLOGICAL: No focal neurological deficits. Moves all extremities spontaneously and on command. PSYCH: Normal mood, normal affect. SKIN: Warm, Dry, normal turgor, no rashes or lesions noted. Course - Re-evaluation Re-evalutation: Rounded on patient after breathing treatment. She states that she feels a lot better. We discussed her results. Do have concerned that she may have COVID- 19. I have discussed this with her. Encouraged her to quarantine until the results return and if it is positive to quarantine further. I have encouraged her to wear a mask at all times and to practice social distancing. Patient agrees with the plan. - Vital Signs Vital signs: Temp Pulse Resp BP Pulse Ox 99.7 F 101 H 20 124/64 99 08/24/20 00:01 08/24/20 00:01 08/24/20 00:01 08/24/20 00:01 08/24/20 00:01 - Laboratory Result Diagrams: 08/23/20 20:35 08/23/20 20:35 Laboratory results interpreted by me: 08/23/20 08/23/20 20:35 20:35 Hgb 11.9 L MCV 79 L MCH 26.0 L RDW 16.2 H Chloride 108 H Glucose 114 H Total Bilirubin 0.1 L Total Protein 5.7 L Albumin 3.4 L - Diagnostic Test Radiology reviewed: Image reviewed, Reports reviewed Discharge - Discharge Clinical Impression: Viral upper respiratory illness, Suspected COVID-19 virus infection, Cough Condition: Stable Disposition: HOME, SELF-CARE Instructions: COVID-19 Guidance for Persons Under Investigation, Upper Respiratory Illness ([facility]) Additional Instructions: Please take medicines as prescribed. There is concern that you may have a COVID-19 infection. Please quarantine at home until you have the results of the Covid test. Those results will become available in 3 to 5 days. You will be called with the results. Please wear a mask. Return if you have worsening symptoms such as shortness of breath, chest pain, passing out or any other concerns. As a person under investigation for COVID-19, [facility], division of public health advises you to adhere to the following guidance until your test results are reported to you. If your test result is positive, you will receive additional information from your provider and your local health department at that time. Remain at home until you are cleared by the healthcare provider public health authorities. Keep a log of visitors to your home and notify any visitors to your home of your isolation status. If you plan to move to a new address or leave the country, notify the local health department and your County. Call your doctor or seek care if you have an urgent medical need. Before seekin g medical care, call ahead to get instructions from the provider before arriving at the medical office, clinic, or hospital. Notify them that you are being tested for the virus that causes COVID-19 so that arrangements can be made, as necessary, to prevent transmission to others in the healthcare setting. Next, notify the local health department and your County. If a medical emergency arises and you need to call 911, informed the first responders that you are being tested for the virus that causes COVID-19. Next, notified the [facility] health department and your County. Prescriptions: Ibuprofen [Motrin 600 mg Tablet] 600 mg PO Q8HP PRN #20 tablet PRN Reason: Benzonatate [Tessalon Perles 100 mg Capsule] 100 mg PO Q8HP PRN #40 capsule PRN Reason: Albuterol Sulfate [Proair HFA Inhalation Aerosol 8.5 gm MDI] 2 puff IH Q4H PRN #1 mdi PRN Reason: Forms: Return to Work Referrals: [facility] [Provider Group] - Follow up in 1 week
[2020-08-23] MEDS ORDERED: IPRATROPIUM/ALBUTEROL 0.5-2.5 MG/3 ML AMPUL NEB ONE (22:12)
[2020-08-23] MEDS ORDERED: DEXAMETHASONE CONC 1 MG/ML SOLN PO ONE (22:13)
[2020-08-23] MEDS ORDERED: KETOROLAC TROMETHAMINE 60 MG/2 ML SDV IM ONE (22:13)
[2020-08-23 23:16] LABS: A TYPE INFLUENZA AG NEGATIVE (NEGATIVE); B INFLUENZA AG NEGATIVE (NEGATIVE)
[2020-08-24 00:04] VITALS: BP 124/64
--- NOTE | 2020-08-24 08:36 | EKG REPORT ---
SEVERITY:- NORMAL ECG - SINUS RHYTHM : Confirmed by: Chance Pruitt MD 24-Aug-2020 08:35:29
== END 2020-08-24 00:04 | disposition home or self-care (01) ==
LOC: ER 19:42
DX: J06.9 Acute upper respiratory infection, unspecified (principal); B97.89 Other viral agents as the cause of diseases classified elsewhere; R05 Cough; R53.83 Other fatigue; J02.9 Acute pharyngitis, unspecified; R43.9 Unspecified disturbances of smell and taste; R06.02 Shortness of breath; R06.2 Wheezing; R50.9 Fever, unspecified; R53.81 Other malaise; F17.200 Nicotine dependence, unspecified, uncomplicated; Z20.828 Contact with and (suspected) exposure to other viral communicable diseases
CPT/HCPCS: 93005; 94640; 99285; 96372; 36415; 87070; 87880; 84703; 85025; 87635; 80053; 84484; 87804; 71045; 93010; J1885; J8540; C9803